=== PATIENT | male | born 1940 | race Caucasian/White ===

== ENCOUNTER → 2023-09-23 09:07 | Outpatient (REF) | payer OTHER, SELFPAY | LOC: RAD 09:07 | PROVIDERS: ATTENDING PHYSICIAN Family Medicine | DX: M25.552 Pain in left hip (principal); G89.29 Other chronic pain; M54.50 Low back pain, unspecified | CPT/HCPCS: 72110; 73502 ==

== ENCOUNTER → 2025-02-26 10:53 | Outpatient (REF) | payer OTHER, SELFPAY | LOC: RCS 10:53 | PROVIDERS: ATTENDING PHYSICIAN Internal Medicine Interventional Cardiology; FAMILY PHYSICIAN Student in an Organized Health Care Education/Training Program | DX: I25.2 Old myocardial infarction (principal) | CPT/HCPCS: 93306 ==